=== PATIENT | male | born 2000 | race African-American/Black ===

== ENCOUNTER 2019-01-26 21:00 | Emergency (ER) | payer OTHER ==
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
[2019-01-26 21:21] VITALS: BP 122/72; PULSE 62; TEMP 98.2; BMI 22.9
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
--- NOTE | 2019-01-27 12:08 | EKG ---
Test Reason : Blood Pressure : / mmHG Vent. Rate : 057 BPM Atrial Rate : 057 BPM P-R Int : 128 ms QRS Dur : 084 ms QT Int : 394 ms P-R-T Axes : 072 081 069 degrees QTc Int : 383 ms POOR DATA QUALITY, INTERPRETATION MAY BE ADVERSELY AFFECTED SINUS BRADYCARDIA OTHERWISE NORMAL ECG WHEN COMPARED WITH ECG OF 19-MAR-2011 17:57, PREVIOUS ECG IS PRESENT Confirmed by ARIEL TORRES, JOHANNA ([id number]) on 01/27/2019 12:07:39 PM Referred By: Confirmed By:JOHANNA GEORGE MD
== END 2019-01-26 22:38 | disposition home or self-care (01) ==
LOC: JERFT 21:00
DX: S20.219A Contusion of unspecified front wall of thorax, initial encounter (principal); V49.49XA Driver injured in collision with other motor vehicles in traffic accident, initial encounter; Y92.414 Local residential or business street as the place of occurrence of the external cause; Y93.89 Activity, other specified; Y99.8 Other external cause status; Z91.013 Allergy to seafood
CPT/HCPCS: 71046-TC-FY; 93005; 93010; 99281-25

== ENCOUNTER 2021-08-01 16:43 | Emergency (ER) | payer OTHER ==
[2021-08-01 16:58] VITALS: TEMP 98; BMI 22.4
[2021-08-01 20:08] VITALS: BP 121/74; PULSE 72
== END 2021-08-01 20:35 | disposition home or self-care (01) ==
LOC: JERFT 16:43
DX: S62.345A Nondisplaced fracture of base of fourth metacarpal bone, left hand, initial encounter for closed fracture (principal); S63.065A Dislocation of metacarpal (bone), proximal end of left hand, initial encounter; W01.0XXA Fall on same level from slipping, tripping and stumbling without subsequent striking against object, initial encounter
CPT/HCPCS: 73110-TC-LT-FY; 73130-TC-LT-FY; 99283-25